=== PATIENT | male | born 1965 | race Caucasian/White ===

== ENCOUNTER 2021-07-02 13:39 | Emergency (ER) | payer OTHER ==
[~2021-07-02] VITALS: Ht 180.3 cm; Wt 105.9 kg
[2021-07-02 13:56] VITALS: BP 136/83
--- NOTE | 2021-07-02 14:12 | NUR ---
pt concerned picc line may not be in place. flushed each lumen with 10cc saline without resistance and good blood return noted. ximena yang at bedside
[2021-07-02] MEDS ORDERED: ACET-8386 PO (15:36)
[2021-07-02 15:50] VITALS: BP 134/70
== END 2021-07-02 15:51 | disposition home or self-care (01) ==
LOC: MED 13:39
DX: T82.514A Breakdown (mechanical) of infusion catheter, initial encounter (principal); Z48.1 Encounter for planned postprocedural wound closure; Z79.899 Other long term (current) drug therapy
CPT/HCPCS: 71045; 81025; 99283; 99284

== ENCOUNTER 2021-12-12 20:42 | Inpatient (IN) | payer OTHER ==
[~2021-12-12] VITALS: Ht 180.3 cm; Wt 102.1 kg
[~2021-12-12 20:42] MED LIST: ACET-8386 PO
[2021-12-12 20:43] VITALS: BP 102/63
--- NOTE | 2021-12-12 20:46 | NUR ---
TO LOBBY A/W BED AMBULATORY
[2021-12-12] MEDS ORDERED: VANCOMYCIN 1,000 MG in DEXTROSE 5% 250 ML IV ONE (22:55)
[2021-12-12] MEDS ORDERED: NACL 0.9% 2,000 ML IV ONE (22:55)
--- NOTE | 2021-12-12 22:55 | NUR ---
PT W/C ASSISTED TO BED #8
[2021-12-12 23:28] LABS: BASOPHILS % (AUTO) 0.1 % (0.0-2.0); EOSINOPHILS % (AUTO) 0.1 % (0.0-4.0); HEMOGLOBIN 13.7 g/dL (12.0-18.0); LYMPHOCYTES # (AUTO) 1.4 K/uL (2.0-11.5); LYMPHOCYTES % (AUTO) 10.7 % (20.5-51.1); MEAN CORPUSCULAR HEMOGLOBIN 29 pg (27-31); MEAN CORPUSCULAR HGB CONC 33 g/dL (33-37); MONOCYTES # (AUTO) 1.4 K/uL (0.8-1.0); NEUTROPHILS # (AUTO) 10.6 K/uL (1.8-7.7); NEUTROPHILS % (AUTO) 79.1 % (42.2-75.2); PLATELET COUNT (AUTO) 250 K/uL (140-450); RED BLOOD CELL COUNT(AUTO) 4.67 MIL/uL (4.20-6.10); RED CELL DISTRIBUTION WIDTH 13.8 % (11.6-13.7); WHITE BLOOD COUNT (AUTO) 13.5 K/uL (4.8-10.8)
[2021-12-13 00:01] LABS: ANION GAP 2.6 (8-16); CARBON DIOXIDE 24.8 mmol/L (21-32); CREATININE 1.7 mg/dL (0.6-1.3); POTASSIUM 3.4 mmol/L (3.5-5.1); TOTAL BILIRUBIN 1.3 mg/dL (0.0-1.0)
--- NOTE | 2021-12-13 00:05 | NUR ---
PER DR. RAM 2L NS TO BE RAN BOLUS NOT 100CC/HR.
[2021-12-13] MEDS ORDERED: VANCOMYCIN 1,000 MG VIAL ONE (00:08)
--- NOTE | 2021-12-13 00:42 | NUR ---
56 Y/O M BIB SELF FOR SELLING AND REDNESS AND FEVER OF RT LEG X 3 DAYS. PT STATES HE NOTICED REDNESS AND IT KEPT GETTING WORSE. PT STATES WHEN HE ELEVATES LEG IT WILL DECREASE. PT STATES HE HAS NEVER HAD INFECTION OF LEG. PT STATES HE HAD MRSA AND HAD A PICC LINE PLACED MONTHS BACK. PT STATES NOTHING CAUSE REDNESS AND SWELLING IT JUST APPEARED OUT OF NOWHERE. PT DENIES V/D/ CP/ SOB. PT DOES HAVE SOME NAUSEA. PT STATES LEG PAIN 01/22. PMH: MRSA NKA
[2021-12-13] MEDS ORDERED: NACL 0.9% 1,000 ML IV ONE (00:45)
[2021-12-13] MEDS ORDERED: ONDANSETRON 4 MG/2 ML VIAL IVP PRN (01:00)
[2021-12-13] MEDS: NACL 0.9% 1,000 ML IV SCH ×2 (01:00→13:30)
[2021-12-13] MEDS ORDERED: HYDROcodone/APAP 5/325 MG 1 TAB TAB PO PRN (01:00)
--- NOTE | 2021-12-13 02:20 | NUR ---
RECEIVED PT FROM ER, ADMITTED TO [facility] UNIT, ARRIVING VIA GURNEY. PT IS AWAKE, ALERT AND ORIENTED X 4. ABLE TO VERBALIZED HIS NEEDS. PT IS WITH COMPLAINTS OF REDNESS AND SWELLING OF RIGHT LEG AND FEVER FOR THREE DAYS. UPON ASSESSMENT, RIGHT LEG IS SWOLLEN WITH REDNESS. PT COMPLAINTS OF PAIN WHEN NURSE TOUCH HIS RIGHT LEG. LEFT LEG IS WITH PITTING EDEMA +2, PT DENIES OF PAIN ON LEFT LEG ALTHOUGH SKIN ON LEFT LEG PRESSED. PT DIAGNOSED WITH CELLULITIS. SKIN INTACT, NO SKIN BREAKDOWN. SALINE LOCK PRESENT ON RIGHT HAND WITH 22 G, INTACT AND PATENT, FLUSHING WELL. PT IS ORIENTED TO ROOM AND HOW TO USE CONTROLLER. INITIAL VITAL SIGNS TAKEN: B/P-127/70, T-82, R-20, O2 SAT-93%, T-100.5. PT STATED HE LACK OF DRINKING WATER.
--- NOTE | 2021-12-13 02:21 | NUR ---
Patient will be admitted to care of . Admited to TELE . Will go to room 127. Belongings list completed. Report to SCOTT.
[2021-12-13] MEDS: MORPHINE SULFATE 2 MG/ML SYR IVP PRN (04:33)
[2021-12-13] MEDS: ACETAMINOPHEN 325 MG TAB PO PRN ×2 (04:34→16:47)
--- NOTE | 2021-12-13 04:34 | NUR ---
ADMINISTERED MEDICATION FOR FEVER AND PAIN ORDERED, ENCOURAGE PT TO INCREASE WATER INTAKE.
--- NOTE | 2021-12-13 05:34 | NUR ---
REASSESSED PT, PT VERBALIZED PAIN IS REDUCED TO 2/10. PT RETURN TO SLEEP.
[2021-12-13] MEDS ORDERED: PIPERACILLIN/TAZOBACTAM 3.375 GM VIAL IV ONE (05:46)
[2021-12-13] MEDS: PIPERACILLIN/TAZOBACTAM 3.375 GM in DEXTROSE 5% 50 ML IV SCH ×3 (05:51→21:06)
[2021-12-13] MEDS ORDERED: LORazepam 1 MG TAB PO PRN (07:05)
--- NOTE | 2021-12-13 07:17 | NUR ---
PT IS ASLEEP, NO SOB OR DISTRESS. CHECK TEMP = 99.2, COOLING MEASURES CONTINUE TO APPLY ON FOREHEAD. PT DENIED OF HAVING HEADACHE. PAIN IS REDUCED TO 2/10. IN FLUID IS INFUSING WELL. ENDORSED TO DAY SHIFT NURSE FOR CONTINUITY OF PT CARE.
[2021-12-13 08:00] VITALS: BP 119/64
--- NOTE | 2021-12-13 08:00 | NUR ---
RECEIVED REPORT FROM VASC TECH FOR CONTINUITY OF CARE. PATIRNT ALERT AWAKE ORIENTED X4, NOT IN ANY DISTRESS NOTED. DENIES PAIN AT THIS TIME. WITH IVF ON GOING AND NINFUSING WELL. ON MONITOR SHOWS SR. WITH SWELLING AND REDNESS ON RIGHT LOWER LEG NO OPEN WOUND NOTED. CALL LIGHT WUITHIN REACH. WILL CONTINUE TO MONITOR.
[2021-12-13] MEDS: ENOXAPARIN 40 MG/0.4 ML SYR SUBQ SCH (08:49)
[2021-12-13] MEDS ORDERED: POTASSIUM CHLORIDE 10 MEQ TABER PO SCH (09:00)
[2021-12-13 09:14] LABS: ANION GAP 14.2 (8-16); CARBON DIOXIDE 26.5 mmol/L (21-32); CREATININE 1.4 mg/dL (0.6-1.3); POTASSIUM 3.7 mmol/L (3.5-5.1)
--- NOTE | 2021-12-13 10:00 | NUR ---
SEEN BY DR. HENRY AND DR. AMBROSE.
[2021-12-13 11:29] LABS: APPEARANCE,URINE CLEAR (CLEAR); BILIRUBIN,URINE 1+ (NEGATIVE); BLOOD, URINE TRACE-I (NEGATIVE); COLOR,URINE BROWN (YELLOW); LEUKOCYTE ESTERASE ,URINE NEGATIVE (NEGATIVE); NITRITE, URINE NEGATIVE (NEGATIVE); UGLUCOSE NEGATIVE (NEGATIVE)
[2021-12-13 11:42] LABS: RBC,URINE 0-5 /HPF (0-5); WBC,URINE 0-5 /HPF (0-5)
[2021-12-13 11:44] LABS: OTHER CASTS, URINE None Seen /LPF (None Seen)
[2021-12-13 12:00] VITALS: BP 119/56
--- NOTE | 2021-12-13 12:00 | NUR ---
PTIENT RESTING IN NBED. DENIES PAIN.
[2021-12-13] MEDS ORDERED: DEXTROSE 5% 250 ML IV SCH (15:45)
[2021-12-13 16:00] VITALS: BP 120/68
--- NOTE | 2021-12-13 16:00 | NUR ---
DR. HENRY HAVE ORDER FRO D5 250 ML BOLUS STARTED AND INFUSING WELL.
[2021-12-13] MEDS: DEXTROSE 5% 1,000 ML IV SCH (16:47)
[2021-12-13 18:12] LABS: ANION GAP 12.9 (8-16); CARBON DIOXIDE 26.2 mmol/L (21-32); CREATININE 1.3 mg/dL (0.6-1.3); POTASSIUM 4.1 mmol/L (3.5-5.1)
--- NOTE | 2021-12-13 19:30 | NUR ---
RECEIVED BEDSIDE REPORT FROM DAY SHIFT RN FOR CONTINUITY OF CARE. PT IS AWAKE NOT IN ANY DISTRESS. PT IS AAOX4. PT IS ON RA. PT HAS RIGHT HAND 22 GAUGE WITH D5 100C/HR. CALL [facility] SELL[facility]. ALL SAFETY MEASURES TAKEN. WILL CONTINUE TO MONITOR THE PT.
[2021-12-13 20:00] VITALS: BP 116/49
--- NOTE | 2021-12-13 21:15 | NUR ---
ALL SCHEDULE MEDS GIVEN. NO ADVERSE REACTION NOTED. WILL CONTINUE TO MONITOR THE PT.
[2021-12-14] VITALS: BP 119/51
--- NOTE | 2021-12-14 02:02 | NUR ---
PT OBSERVED. PT IS SLEEPING COMFORTABLY IN BED WITHOUT ANY DISTRESS. VISIBLE CHEST RISE AND FALL. CALL LIGHT WITHIN REACH. ALL SAFETY MEASURES TAKEN. WILL CONTINUE TO MONITOR THE PT.
[2021-12-14] MEDS: DEXTROSE 5% 1,000 ML IV SCH ×3 (02:30→20:11)
[2021-12-14 04:00] VITALS: BP 117/53
[2021-12-14] MEDS: MORPHINE SULFATE 2 MG/ML SYR IVP PRN ×3 (04:01→21:13)
--- NOTE | 2021-12-14 04:10 | NUR ---
PT COMPLAIN OF RIGHT LEG PAIN 10/10 AND ASKED FOR PILLOW. PILLOW AND PRN PAIN MED GIVEN. NO OTHER COMPLAINS. WILL CONTINUE TO MONITOR THE PT.
[2021-12-14] MEDS: PIPERACILLIN/TAZOBACTAM 3.375 GM in DEXTROSE 5% 50 ML IV SCH ×3 (04:14→20:19)
[2021-12-14 05:24] LABS: BASOPHILS % (AUTO) 0.3 % (0.0-2.0); EOSINOPHILS % (AUTO) 0.1 % (0.0-4.0); HEMATOCRIT 35.8 % (36-52); HEMOGLOBIN 11.8 g/dL (12.0-18.0); LYMPHOCYTES # (AUTO) 1.4 K/uL (2.0-11.5); MEAN CORPUSCULAR HEMOGLOBIN 29 pg (27-31); MEAN CORPUSCULAR HGB CONC 33 g/dL (33-37); MEAN CORPUSCULAR VOLUME 88.3 fL (80-94); MONOCYTES # (AUTO) 1.6 K/uL (0.8-1.0); MONOCYTES % (AUTO) 10.2 % (1.7-9.3); NEUTROPHILS # (AUTO) 12.3 K/uL (1.8-7.7); NEUTROPHILS % (AUTO) 80.4 % (42.2-75.2); PLATELET COUNT (AUTO) 259 K/uL (140-450); RED BLOOD CELL COUNT(AUTO) 4.06 MIL/uL (4.20-6.10); RED CELL DISTRIBUTION WIDTH 13.9 % (11.6-13.7); WHITE BLOOD COUNT (AUTO) 15.3 K/uL (4.8-10.8)
[2021-12-14 06:20] LABS: ALBUMIN 2.2 g/dL (3.4-5.0); ANION GAP 12.9 (8-16); CARBON DIOXIDE 26.9 mmol/L (21-32); CREATININE 0.9 mg/dL (0.6-1.3); MAGNESIUM 1.9 mg/dL (1.8-2.4); POTASSIUM 3.8 mmol/L (3.5-5.1); TOTAL BILIRUBIN 0.6 mg/dL (0.0-1.0)
--- NOTE | 2021-12-14 07:26 | NUR ---
ENDORSED PT TO DAY SHIFT RN FOR CONTINUITY OF CARE. PT IS STABLE.
--- NOTE | 2021-12-14 07:30 | NUR ---
RECEIVED REPORT FROM PLANNING SPECIALIST FOR CONTINUITY OF CARE. PATIENT ALERT AWAKE ORIENTED X4, NOT IN ANY DISTRESS NOTED. DENIES PAIN AT THIS TIME. WITH IVF ON GOING AND INFUSING WELL. ON MONITOR SHOWS SR. WITH SWELLING AND REDNESS ON RIGHT LOWER LEG NO OPEN WOUND NOTED. CALL LIGHT WITHIN REACH. WILL CONTINUE TO MONITOR.
[2021-12-14 08:00] VITALS: BP 114/57
[2021-12-14] MEDS ORDERED: VANCOMYCIN PER PHARMACY MC PRN (08:20)
[2021-12-14] MEDS: VANCOMYCIN HCL 1.25 GM in DEXTROSE 5% 250 ML IV SCH ×2 (09:05→20:19)
[2021-12-14] MEDS: ENOXAPARIN 40 MG/0.4 ML SYR SUBQ SCH (09:05)
--- NOTE | 2021-12-14 09:15 | NUR ---
DUE MEDS GIVEN
--- NOTE | 2021-12-14 09:22 | NUR ---
PATIENT HAS BEEN SCREENED AND CATEGORIZED LOW NUTRITION RISK. PATIENT WILL BE SEEN WITHIN 7 DAYS OF ADMISSION. 12/19/21 REFERRAL RECEIVED NOT APPLICABLE TISHA LIMON [address]
--- NOTE | 2021-12-14 11:30 | NUR ---
PT RESTING IN BED, NO C/O PAIN, NO SOB
[2021-12-14 12:00] VITALS: BP 110/60
--- NOTE | 2021-12-14 14:46 | NUR ---
DC PLANNIN YRS OLD MALE PATIENT WAS ADMITTED FROM HOME WITH A DX OF CELLULITIS OF RIGHT LOWER EXTREMITY AND HYPONATREMIA. PATIENT HAS NO MEDICAL HISTORY. US LOWER EXTREMITY NO EVIDENCE OF DVT ,GENERALIZE SOFT TISSUE SWELLING. NA+LEVEL ON ADMISSION 116. ADMINISTERED IVF NA+LEVEL 135. IV ABX VANCOMYCIN AND ZOSYN AND PAIN MEDICATION CONSULTED WITH SENIOR [employer] CONSULTANT. DC PLAN TO GO HOME WHEN STABLE. CM TO FOLLOW Addendum: 12/15/21 at 1454 by Hawa Mac RN DC PLANNING: WBC 12.7 , NA+ 138 COMPLAIN OF PAIN ON RT LOW EXT, RECEIVED MORPHINE FOR PAIN. CONTINUE VANCO AND ZOSYN. PER DR ELAINE QUIROZ HOME TOMORROW. CM TO FOLLOW
[2021-12-14 16:00] VITALS: BP 112/66
[2021-12-14 20:00] VITALS: BP 125/63
--- NOTE | 2021-12-14 20:00 | NUR ---
RECEIVED PATIENT A/A/AOX4, LAYING IN BED WATCHING TV. PATIENT NOT IN ANY DISTRESS JUST C/O PAIN ON HIS LLE 10/22. VSS, AFEBRILE, SATING 95% ON RA. SR ON SPUD DRILLER, HR-73. LLE WARM TO TOUCH , SWOLLEN AND + PALPABLE DP/PT BILATERAL. FALL PRECAUTION IMPLEMENTED. INSTRUCTED THE PT TO CALL FOR ASSISTANCE AT ALL TIMES. PT VERBALIZED UNDERSTANDING WITH THE POC. CALL LIGHT WITHIN REACH. WILL CONTINUE POC AND MONITORING.
--- NOTE | 2021-12-14 22:00 | NUR ---
ALL DUE MEDS GIVEN ORDERED. NO ADVERSE DRUG REACTION NOTED. NO COMPLAIN FROM THE PATIENT. WILL CONTINUE TO MONITOR THE PATIENT.
[2021-12-15] VITALS: BP 111/54
--- NOTE | 2021-12-15 | NUR ---
PATIENT VITAL SIGNS STABLE, AFEBRILE, SATING 95% ON RA. NO COMPLAIN OF PAIN AT THIS TIME. SR ON TELE MONITOR, HR-66. CALL LIGHT WITHIN REACH. WILL CONTINUE MONITORING.
--- NOTE | 2021-12-15 02:00 | NUR ---
PATIENT ASLEEP AT THIS TIME. VISIBLE CHEST RISE AND FALL NOTED. NO SIGN AND SYMPTOMS OF DISTRESS NOTED AT THIS TIME. WILL CONTINUE OBSERVATION.
[2021-12-15 04:00] VITALS: BP 117/54
--- NOTE | 2021-12-15 04:00 | NUR ---
PATIENT VITAL SIGNS STABLE, AFEBRILE, SATING 97% ON RA. NO COMPLAIN OF PAIN AT THIS TIME. SR ON TELE MONITOR, HR-75. CALL LIGHT WITHIN REACH. WILL CONTINUE MONITORING.
[2021-12-15] MEDS: PIPERACILLIN/TAZOBACTAM 3.375 GM in DEXTROSE 5% 50 ML IV SCH ×3 (05:02→20:04)
--- NOTE | 2021-12-15 05:30 | NUR ---
CALLED PATIENT SISTER FOR AN UPDATE ABOUT THE PATIENT WITH THE PATIENT PERMISSION. UPDATED PATIENT SISTER ALONSO ABOUT THE PT CONDITION AND POC.
[2021-12-15 06:05] LABS: BASOPHILS % (AUTO) 0.2 % (0.0-2.0); EOSINOPHILS # (AUTO) 0.1 K/uL (0-0.4); EOSINOPHILS % (AUTO) 0.6 % (0.0-4.0); HEMOGLOBIN 11.8 g/dL (12.0-18.0); LYMPHOCYTES # (AUTO) 1.5 K/uL (2.0-11.5); LYMPHOCYTES % (AUTO) 12.1 % (20.5-51.1); MEAN CORPUSCULAR HEMOGLOBIN 29 pg (27-31); MEAN CORPUSCULAR HGB CONC 33 g/dL (33-37); MEAN CORPUSCULAR VOLUME 88.6 fL (80-94); MONOCYTES # (AUTO) 1.1 K/uL (0.8-1.0); MONOCYTES % (AUTO) 8.8 % (1.7-9.3); NEUTROPHILS # (AUTO) 9.9 K/uL (1.8-7.7); NEUTROPHILS % (AUTO) 78.3 % (42.2-75.2); PLATELET COUNT (AUTO) 349 K/uL (140-450); RED BLOOD CELL COUNT(AUTO) 4.07 MIL/uL (4.20-6.10); WHITE BLOOD COUNT (AUTO) 12.7 K/uL (4.8-10.8)
--- NOTE | 2021-12-15 06:22 | NUR ---
NO ACUTE EVENTS THROUGHOUT THE NIGHT. PATIENT STABLE. NOT IN ANY DISTRESS AND NO COMPLAIN AT THIS TIME. ALL NEEDS ATTENDED. CALL LIGHT WITHIN REACH. WILL ENDORSE THE PATIENT TO THE ONCOMING RN FOR CONTINUITY OF CARE.
[2021-12-15 06:25] LABS: ALBUMIN 2.2 g/dL (3.4-5.0); ANION GAP 13.4 (8-16); POTASSIUM 4.4 mmol/L (3.5-5.1); TOTAL BILIRUBIN 0.5 mg/dL (0.0-1.0)
[2021-12-15 06:38] LABS: CREATININE 1.1 mg/dL (0.6-1.3)
[2021-12-15] MEDS: MORPHINE SULFATE 2 MG/ML SYR IVP PRN ×2 (07:05→19:56)
[2021-12-15] MEDS: DEXTROSE 5% 1,000 ML IV SCH (07:12)
--- NOTE | 2021-12-15 07:35 | NUR ---
ENDORSED PATIENT TO THE ONCOMING RN FOR CONTINUITY OF CARE. PATIENT STABLE. SIGNING OFF.
--- NOTE | 2021-12-15 07:36 | NUR ---
RECEIVED BEDSIDE REPORT FROM BACK UP MACHINE OPERATOR NURSE FOR CONTINUOUS CARE, PT RESTING, NO DISTRESS NOTED, PT ON ROOM AIR, IV TO RIGHT HAND 22 G. RIGHT FOOT NOTED RED AND SWELLING. NO SOB NOTED, INITIAL ASSESSMENT DONE, ALL SAFETY PRECAUTION MET, CALL LIGHT WITHIN REACH, WILL CONTINUE TO MONITOR.
[2021-12-15 08:00] VITALS: BP 103/57
[2021-12-15] MEDS: ENOXAPARIN 40 MG/0.4 ML SYR SUBQ SCH (08:44)
[2021-12-15] MEDS: VANCOMYCIN HCL 1.25 GM in DEXTROSE 5% 250 ML IV SCH ×2 (09:40→21:17)
--- NOTE | 2021-12-15 09:40 | NUR ---
DUE MEDICATION ADMINISTERED VANCOMYCIN THROUGH 8.6, VANCO ADMINISTERED, PT TOLERATED WELL, NO DISTRESS NOTED.
[2021-12-15 12:00] VITALS: BP 108/62
--- NOTE | 2021-12-15 13:50 | NUR ---
DUE MEDICATIONS ADMINISTERED, PT TOLERATED WELL, NO DISTRESS NOTED, WILL CONTINUE TO MONITOR.
[2021-12-15 16:00] VITALS: BP 117/62
--- NOTE | 2021-12-15 19:18 | NUR ---
ENDORSED PT TO BEACH LIFEGUARD NURSE FOR CONTINUOUS OF CARE.
--- NOTE | 2021-12-15 19:30 | NUR ---
RECEIVED BEDSIDE REPORT FROM DAY SHIFT RN FOR CONTINUITY OF CARE. PT IS AWAKE IN BED ON RA. PT IS AAOX4. PT HAS LEFT HAND 24 GAUGE RUNNING D5 50 CC/HR. PT HAS RIGHT LEG CELLULITIS. PT COMPLAINS OF PAIN ON RIGHT LEG AND WANTS PAIN MEDICATION. WILL GIVE PRN MEDICATION PER MD ORDER. NO OTHER COMPLAINS. URINAL EMPTIED. WILL CONTINUE TO MONITOR THE PT.
[2021-12-15 20:00] VITALS: BP 110/53
--- NOTE | 2021-12-15 20:10 | NUR ---
SCHEDULE MEDS GIVEN. ALSO, PT COMPLAIN OF RIGHT LEG PAIN 01/22. MORPHINE GIVEN PER MD ORDER. NO OTHER COMPLAINS. NO ADVERSE REACTION NOTED. WILL CONTINUE TO MONITOR THE PT.
--- NOTE | 2021-12-16 01:36 | NUR ---
PT IS SLEEPING COMFORTABLY IN BED. PT IS NOT IN ANY ACUTE DISTRESS. BREATHING EVEN AND UNLABORED. IVF RUNNING PER MD ORDER. CALL LIGHT WITHIN REACH. ALL SAFETY MEASURES TAKEN. WILL CONTINUE TO MONITOR THE PT.
[2021-12-16 04:00] VITALS: BP 105/55
--- NOTE | 2021-12-16 04:17 | NUR ---
SCHEDULE MEDS GIVEN. PT COMPLAIN OF SEVERE RIGHT LEG PAIN. MORPHINE GIVE. NO ADVERSE REACTION NOTED. WILL CONTINUE TO MONITOR THE PT.
[2021-12-16] MEDS: PIPERACILLIN/TAZOBACTAM 3.375 GM in DEXTROSE 5% 50 ML IV SCH (04:18)
[2021-12-16] MEDS: MORPHINE SULFATE 2 MG/ML SYR IVP PRN (05:31)
[2021-12-16 05:51] LABS: BASOPHILS # (AUTO) 0.1 K/uL (0.00-0.22); BASOPHILS % (AUTO) 0.7 % (0.0-2.0); EOSINOPHILS # (AUTO) 0.1 K/uL (0-0.4); EOSINOPHILS % (AUTO) 1.3 % (0.0-4.0); HEMATOCRIT 35.9 % (36-52); HEMOGLOBIN 11.8 g/dL (12.0-18.0); LYMPHOCYTES # (AUTO) 1.5 K/uL (2.0-11.5); LYMPHOCYTES % (AUTO) 13.8 % (20.5-51.1); MEAN CORPUSCULAR HEMOGLOBIN 29 pg (27-31); MEAN CORPUSCULAR HGB CONC 33 g/dL (33-37); MEAN CORPUSCULAR VOLUME 88.7 fL (80-94); MONOCYTES % (AUTO) 8.7 % (1.7-9.3); NEUTROPHILS # (AUTO) 8.3 K/uL (1.8-7.7); NEUTROPHILS % (AUTO) 75.5 % (42.2-75.2); PLATELET COUNT (AUTO) 460 K/uL (140-450); RED BLOOD CELL COUNT(AUTO) 4.05 MIL/uL (4.20-6.10); RED CELL DISTRIBUTION WIDTH 13.6 % (11.6-13.7)
[2021-12-16 07:03] LABS: ANION GAP 14.9 (8-16); CARBON DIOXIDE 25.5 mmol/L (21-32); CREATININE 1.1 mg/dL (0.6-1.3); POTASSIUM 4.4 mmol/L (3.5-5.1); TOTAL BILIRUBIN 0.5 mg/dL (0.0-1.0)
--- NOTE | 2021-12-16 07:16 | NUR ---
ENDORSED PT TO DAY SHIFT RN FOR CONTINUITY OF CARE. PT IS STABLE.
--- NOTE | 2021-12-16 07:20 | NUR ---
GOT REPORT FROM THE NIGHT NURSE, PT IS SLEEPING,NO SOB, LOOKS COMFORTABLE.[id number]
[2021-12-16 08:00] VITALS: BP 110/62
[2021-12-16] MEDS ORDERED: SULF-59 PO (08:13)
[2021-12-16] MEDS ORDERED: ACET-1182 PO (08:13)
[2021-12-16] MEDS ORDERED: ACET-9525 PO (08:13)
[2021-12-16] MEDS: ENOXAPARIN 40 MG/0.4 ML SYR SUBQ SCH (08:45)
[2021-12-16] MEDS: VANCOMYCIN HCL 1.25 GM in DEXTROSE 5% 250 ML IV SCH (09:00)
[2021-12-16 09:14] VITALS: BP 110/62
[2021-12-16] MEDS: DEXTROSE 5% 1,000 ML IV SCH (10:37)
--- NOTE | 2021-12-16 12:00 | NUR ---
DC PLANNING SW MEET WITH PATIENT AT BED SIDE TO DISCUSS THE IMPORTANCE OF MAKING A FOLLOW UP APPOINTMENT AFTER HIS DC FROM [facility] WITH HIS PCP. PATIENT AGREED. HOWEVER; DECLINED FOR SW TO MAKE HIS APPOINTMENT AND STATED THAT HE WILL BE MAKING HIS OWN APPOINTMENT WHEN HE IS HOME. SW WILL FOLLOW UP NEEDED.
[2021-12-16 12:04] VITALS: BP 110/62
--- NOTE | 2021-12-16 12:27 | NUR ---
PT DISCHARGED, DISCHARGE PACKAGE IS GIVEN, IV AND ID BAND REMOVED, PT ESCORTED IN W\C TO HIS CAR.[id number]
== END 2021-12-16 12:20 | disposition home or self-care (01) | DRG 469 ==
LOC: MED 20:42 → MTU 12-13 01:05 → MMU 12-13 01:47
PROVIDERS: ADMIT Internal Medicine; ATTEND Internal Medicine
DX: N17.9 Acute kidney failure, unspecified (principal); E44.1 Mild protein-calorie malnutrition; L03.115 Cellulitis of right lower limb; E87.1 Hypo-osmolality and hyponatremia; Z20.822 Contact with and (suspected) exposure to COVID-19; Z68.31 Body mass index [BMI] 31.0-31.9, adult
CPT/HCPCS: 36415; 73700; 80048; 80053; 80202; 81001; 82533; 83605; 83735; 84295; 84300; 84443; 85025; 87040; 87081; 93971; 96365; 99291; J1650; J2270; J2543; J3370; J7030; J7060; Q0092

== ENCOUNTER 2022-02-02 03:35 | Inpatient (IN) | payer OTHER ==
[~2022-02-02] VITALS: Ht 180.3 cm; Wt 99.8 kg
[~2022-02-02 03:35] MED LIST changes: +ACET-1182 PO; -ACET-8386 PO; +ACET-9525 PO; +SULF-59 PO
[2022-02-02 03:51] VITALS: BP 126/80
--- NOTE | 2022-02-02 04:20 | NUR ---
ER physician at bedside with patient.
[2022-02-02] MEDS ORDERED: ONDANSETRON 4 MG/2 ML VIAL IVP ONE (04:30)
[2022-02-02] MEDS ORDERED: MORPHINE SULFATE 2 MG/ML SYR IVP ONE (04:30)
--- NOTE | 2022-02-02 05:34 | NUR ---
Ultrasound at bedside.
[2022-02-02 05:37] LABS: BASOPHILS # (AUTO) 0.1 K/uL (0.00-0.22); BASOPHILS % (AUTO) 1.3 % (0.0-2.0); EOSINOPHILS # (AUTO) 0.4 K/uL (0-0.4); EOSINOPHILS % (AUTO) 7.9 % (0.0-4.0); HEMATOCRIT 35.7 % (36-52); HEMOGLOBIN 11.8 g/dL (12.0-18.0); LYMPHOCYTES # (AUTO) 1.7 K/uL (2.0-11.5); LYMPHOCYTES % (AUTO) 30.8 % (20.5-51.1); MEAN CORPUSCULAR HEMOGLOBIN 30 pg (27-31); MEAN CORPUSCULAR HGB CONC 33 g/dL (33-37); MEAN CORPUSCULAR VOLUME 89.3 fL (80-94); MONOCYTES # (AUTO) 0.6 K/uL (0.8-1.0); NEUTROPHILS # (AUTO) 2.8 K/uL (1.8-7.7); PLATELET COUNT (AUTO) 276 K/uL (140-450); WHITE BLOOD COUNT (AUTO) 5.5 K/uL (4.8-10.8)
[2022-02-02 05:54] LABS: ALBUMIN 3.3 g/dL (3.4-5.0); CARBON DIOXIDE 30.4 mmol/L (21-32); POTASSIUM 4.4 mmol/L (3.5-5.1); TOTAL BILIRUBIN 0.2 mg/dL (0.0-1.0)
[2022-02-02] MEDS ORDERED: cefTRIAXone 1,000 MG VIAL ONE (06:41)
[2022-02-02] MEDS ORDERED: HYDROcodone/APAP 5/325 MG 1 TAB TAB PO PRN (07:30)
[2022-02-02] MEDS ORDERED: ACETAMINOPHEN 325 MG TAB PO PRN (07:30)
[2022-02-02] MEDS ORDERED: ONDANSETRON 4 MG/2 ML VIAL IVP PRN (07:30)
--- NOTE | 2022-02-02 07:51 | NUR ---
Change of shift report given to AM shift nurse Cielo RN. AM shift nurse Cielo RN verbalized understanding of report, no further questions.
--- NOTE | 2022-02-02 07:51 | NUR ---
Received report from Olvin PAN, assumed care at this time.
--- NOTE | 2022-02-02 09:09 | NUR ---
Patient will be admitted to care of DR. LOU. Admited to Med/Surg. Will go to room 123B. Belongings list completed. Report to [facility].
--- NOTE | 2022-02-02 10:00 | NUR ---
PT ARRIVED IN STABLE CONDITION. REPORT RECEIVED FROM VIVIANE TABARES. PT A/O*NPTE. MRSA NASAL SWAB COLLECTED AND SENT TO LAB.
[2022-02-02] MEDS: DOCUSATE SODIUM 100 MG GELCAP PO SCH (12:22)
[2022-02-02] MEDS: ENOXAPARIN 40 MG/0.4 ML SYR SUBQ SCH (12:26)
[2022-02-02] MEDS: MORPHINE SULFATE 4 MG/ML SYR IVP PRN (12:40)
--- NOTE | 2022-02-02 13:51 | NUR ---
PATIENT HAS BEEN SCREENED AND CATEGORIZED LOW NUTRITION RISK. PATIENT WILL BE SEEN WITHIN 7 DAYS OF ADMISSION. 02/08/[address] Addendum: 02/02/22 at [address] *CORRECTION PATIENT HAS BEEN SCREENED AND CATEGORIZED LOW NUTRITION RISK. PATIENT WILL BE SEEN WITHIN 7 DAYS OF ADMISSION. 02/09/[address]
[2022-02-02 16:00] VITALS: BP 118/64
--- NOTE | 2022-02-02 19:30 | NUR ---
RECEIVED REPORT FROM DAY SHIFT NURSE YOUNG FOR CONTINUITY OF CARE. PATIENT IS A&O X4. PATIENT IS ON ROOM AIR, BREATHING IS NORMAL WITH SYMMETRICAL RISE AND FALL OF CHEST. PATIENT'S IV IS A 22G LEFT UPPER ARM, RUNNING 5ML NS TKO. PATIENT IS ASLEEP IN HIGH FOWLERS POSITION. PATIENT HAS EDEMA OF THE RIGHT LEG AND CELLULITIS. BED IS IN LOWEST POSITION WITH WHEELS LOCKED AND CALL LIGHT IN PLACE. WILL CONTINUE TO OBSERVE PATIENT.
[2022-02-02 20:00] VITALS: BP 115/76
--- NOTE | 2022-02-02 22:00 | NUR ---
GAVE PATIENT 2100 MEDICATIONS. PATIENT WAS SLEEPING UPON ENTERING THE ROOM. WOKE PATIENT UP TO INFORM HIM THAT HE WAS GETTING AN IVPB. PATIENT SAID OKAY AND LEANED HIS HEAD BACK TO GO BACK TO SLEEP. HUNG IVPB AND STARTED IV PUMP. BREATHING WAS NORMAL WITH SYMMETRICAL RISE AND FALL OF CHEST. WILL CONTINUE TO OBSERVE PATIENT.
--- NOTE | 2022-02-03 | NUR ---
LOOKED IN ON PATIENT. PATIENT WAS ASLEEP IN HIGH FOWLERS POSITION, BUT MUST HAVE GOTTEN UP AND USED HIS URINAL. EMPTIED 600 ML. BREATHING WAS NORMAL WITH SYMMETRICAL RISE AND FALL OF CHEST. WILL CONTINUE TO OBSERVE PATIENT.
--- NOTE | 2022-02-03 02:00 | NUR ---
LOOKED IN ON PATIENT. PATIENT WAS SLEEPING COMFORTABLY IN HIGH FOWLERS POSITION. BREATHING WAS NORMAL WITH SYMMETRICAL RISE AND FALL OF CHEST. WILL CONTINUE TO OBSERVE PATIENT.
[2022-02-03] MEDS: MORPHINE SULFATE 4 MG/ML SYR IVP PRN ×3 (03:24→16:40)
--- NOTE | 2022-02-03 03:30 | NUR ---
LOOKED IN ON PATIENT. PATIENT REQUESTED MORPHINE FOR LEG PAIN. VITALS WERE IN NORMAL RANGE. ADMINISTERED MORPHINE TO PATIENT AFTER VERIFYING IT WAS APPROPRIATE TO GIVE. PATIENT TOLERATED WELL. EMPTIED PATIENT'S URINAL OF ANOTHER 600ML. PATIENT WAS AWAKE AND WATCHING TELEVISION. WILL CONTINUE TO OBSERVE PATIENT.
--- NOTE | 2022-02-03 04:40 | NUR ---
LOOKED IN ON PATIENT TO REASSESS PAIN. PATIENT WAS SLEEPING ON LEFT SIDE. BREATHING WAS NORMAL WITH SYMMETRICAL RISE AND FALL OF CHEST. WILL CONTINUE TO OBSERVE PATIENT.
--- NOTE | 2022-02-03 05:52 | NUR ---
ADMINISTERED 0500 IVPB. MEDICATION STARTED WITHOUT ANY ISSUES. PATIENT IS CURRENTLY SLEEPING, BREATHING IS NORMAL WITH SYMMETRICAL RISE AND FALL OF CHEST. WILL CONTINUE TO OBSERVE PATIENT.
[2022-02-03 05:58] LABS: EOSINOPHILS # (AUTO) 0.4 K/uL (0-0.4); EOSINOPHILS % (AUTO) 7.6 % (0.0-4.0); HEMATOCRIT 40.4 % (36-52); HEMOGLOBIN 13.3 g/dL (12.0-18.0); LYMPHOCYTES # (AUTO) 1.6 K/uL (2.0-11.5); LYMPHOCYTES % (AUTO) 31.2 % (20.5-51.1); MEAN CORPUSCULAR HEMOGLOBIN 30 pg (27-31); MEAN CORPUSCULAR HGB CONC 33 g/dL (33-37); MEAN CORPUSCULAR VOLUME 89.8 fL (80-94); MONOCYTES # (AUTO) 0.5 K/uL (0.8-1.0); MONOCYTES % (AUTO) 10.6 % (1.7-9.3); NEUTROPHILS # (AUTO) 2.5 K/uL (1.8-7.7); NEUTROPHILS % (AUTO) 49.6 % (42.2-75.2); PLATELET COUNT (AUTO) 261 K/uL (140-450); RED BLOOD CELL COUNT(AUTO) 4.49 MIL/uL (4.20-6.10); RED CELL DISTRIBUTION WIDTH 14.3 % (11.6-13.7); WHITE BLOOD COUNT (AUTO) 5.1 K/uL (4.8-10.8)
[2022-02-03 06:38] LABS: ANION GAP 9.7 (8-16); CARBON DIOXIDE 29.8 mmol/L (21-32); POTASSIUM 4.5 mmol/L (3.5-5.1); TOTAL BILIRUBIN 0.3 mg/dL (0.0-1.0)
--- NOTE | 2022-02-03 07:30 | NUR ---
ENDORSED TO DAY SHIFT NURSE PAMELA FOR CONTINUITY OF CARE. PATIENT IS STABLE. Addendum: 02/03/22 at 0818 by Olvin Rojas RN ENDORSED TO DAY SHIFT NURSE TALAVERA FOR CONTINUITY OF CARE. PATIENT IS STABLE.
[2022-02-03 08:00] VITALS: BP 123/68
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
[2022-02-03] MEDS: ENOXAPARIN 40 MG/0.4 ML SYR SUBQ SCH (09:36)
[2022-02-03] MEDS: DOCUSATE SODIUM 100 MG GELCAP PO SCH (09:38)
[2022-02-03] MEDS ORDERED: CEPH-588 PO (15:35)
[2022-02-03 16:00] VITALS: BP 143/67
[2022-02-03 17:20] VITALS: BP 143/67
--- NOTE | 2022-02-03 17:55 | NUR ---
RECEIVE DISCHARGE ORDER FROM DR. LOU AND DISCHARGE PATIENT HOME. PATIENT'S SISTER, ALONSO AND INFORM HER REGARDING TO USING JUAN JOSÉ BANDAGE /COMPRESSION STOCK MODULATE RLE EDEMA CONDITION. AT THIS POINT OF TIME, PATIENT SIGN DISCHARGE CONSENT, IV ACCESS & WRIST BAND REMOVED, DISCHARGE INSTRUCTION GIVEN. WAITING FOR SISTER'S RIDE
--- NOTE | 2022-02-03 18:27 | NUR ---
AROUND 1625, PATIENT'S RIDE IS HERE. PATIENT WHEEL OUT WITH NO ACUTE DISTRESS NOTE. DISCHARGE INSTRUCTION GIVEN, PATIENT VERBALLY STATE THAT HE UNDERSTAND.
== END 2022-02-03 18:25 | disposition home or self-care (01) | DRG 383 ==
LOC: MED 03:35 → MTU 07:34
PROVIDERS: ADMIT Hospitalist; ATTEND Hospitalist
DX: L03.115 Cellulitis of right lower limb (principal); E88.09 Other disorders of plasma-protein metabolism, not elsewhere classified; Z20.822 Contact with and (suspected) exposure to COVID-19; Z79.899 Other long term (current) drug therapy
CPT/HCPCS: 36415; 71045; 80053; 83605; 83735; 83880; 84484; 85025; 87040; 87081; 93005; 93971; 96365; 96375; 99285; J0690; J0696; J1650; J2270; J2405; J7060; Q0092

== ENCOUNTER 2023-06-28 20:00 | Emergency (ER) | payer OTHER ==
[~2023-06-28] VITALS: Ht 180.3 cm; Wt 104.3 kg
[~2023-06-28 20:00] MED LIST changes: -ACET-1182 PO; -ACET-9525 PO; +CEPH-588 PO; -SULF-59 PO
[2023-06-28 20:08] VITALS: BP 140/82; PULSE 87; RESP 16; TEMP 97.6; O2SAT 99
[2023-06-28 22:08] VITALS: O2SAT 99
[2023-06-28] MEDS ORDERED: CEPH-588 PO (23:09)
[2023-06-28] MEDS ORDERED: IBUP-2213 PO (23:09)
[2023-06-28] MEDS: KETOROLAC 60 MG/2 ML VIAL IM ONE (23:10)
== END 2023-06-28 23:41 | disposition home or self-care (01) ==
LOC: MED 20:00
DX: S93.492A Sprain of other ligament of left ankle, initial encounter (principal); Z79.899 Other long term (current) drug therapy; X50.1XXA Overexertion from prolonged static or awkward postures, initial encounter; Y93.89 Activity, other specified; Y92.89 Other specified places as the place of occurrence of the external cause; Y99.8 Other external cause status
CPT/HCPCS: 73610; 96372; 99283; J1885; Q0092

== ENCOUNTER 2023-07-03 12:24 | Emergency (ER) | payer OTHER ==
[~2023-07-03] VITALS: Ht 180.3 cm; Wt 104.3 kg
[~2023-07-03 12:24] MED LIST changes: +IBUP-2213 PO
[2023-07-03 12:36] VITALS: BP 120/90; PULSE 88; RESP 17; TEMP 97.5; O2SAT 98
[2023-07-03 12:40] VITALS: BP 118/88; PULSE 81; RESP 17; TEMP 97.5; O2SAT 98
[2023-07-03] MEDS ORDERED: SULF-59 PO (13:01)
[2023-07-03] MEDS: BACITRACIN OINT 500 UNITS/GM PKT TP ONE (13:10)
[2023-07-03] MEDS: HYDROcodone/APAP 5/325 MG 1 TAB TAB PO ONE (13:11)
== END 2023-07-03 13:47 | disposition home or self-care (01) ==
LOC: MED 12:24
DX: L03.032 Cellulitis of left toe (principal); Z79.899 Other long term (current) drug therapy
CPT/HCPCS: 99283